=== PATIENT | female | born 2000 | race Caucasian/White ===

== ENCOUNTER 2023-06-23 14:18 | Emergency (ER) | payer SELFPAY ==
[~2023-06-23] VITALS: Ht 180.3 cm; Wt 79.4 kg
[2023-06-23 19:27] VITALS: BP 124/60
== END 2023-06-23 19:28 | disposition home or self-care (01) ==
LOC: ED 14:18
DX: S61.211A Laceration without foreign body of left index finger without damage to nail, initial encounter (principal); X58.XXXA Exposure to other specified factors, initial encounter; Z23 Encounter for immunization
CPT/HCPCS: 90471; 90715; 99282